=== PATIENT | male | born 1950 | race Hispanic/Latino ===

== ENCOUNTER 2018-03-27 05:30 | Day surgery (SDC) | payer MEDICARE, OTHER ==
[~2018-03-27] VITALS: Ht 162.6 cm; Wt 83.0 kg
[2018-03-27] VITALS (13 sets, daily range): BP systolic 94–200; BP diastolic 45–100
[~2018-03-27 05:30] MED LIST: AMIO200T5 PO; CARV3.12 PO; CYCL30DR OU; FOLI1TAB85 PO; FURO80TA3 PO; LEVO75 PO; SACU1TAB PO
[2018-03-27] MEDS ORDERED: SODIUM CHLORIDE 0.9% 1000ML 1,000 ML IV ONE (05:40)
[2018-03-27] MEDS ORDERED: PROPOFOL 10 MG/ML 20ML VIAL IV ONE (06:47)
[2018-03-27] MEDS ORDERED: EPHEDRINE SULFATE 50 MG/ML AMPULE ONE (07:03)
--- NOTE | 2018-03-27 08:20 | NUR ---
DC PT DC HOME, ACCOMPANIED BY SPOUSE, PT AWAKE AND ALERT, NO DISTRESS NOTED. PT DENIED ANY PAIN OR DISCOMFORTS. PT STATES HAS HAD PRODUCTIVE COUGH EVEN PRE PROCEDURE. NO PIV NOTED.
== END 2018-03-27 08:20 | disposition home or self-care (01) ==
LOC: ENDO 05:30 → DAH 05:30 → ENDO 08:20
PROVIDERS: ATTEND Internal Medicine Gastroenterology
DX: D12.0 Benign neoplasm of cecum (principal); D12.2 Benign neoplasm of ascending colon; Z86.010 Personal history of colon polyps; K29.50 Unspecified chronic gastritis without bleeding; K31.89 Other diseases of stomach and duodenum; K44.9 Diaphragmatic hernia without obstruction or gangrene; K57.30 Diverticulosis of large intestine without perforation or abscess without bleeding; K31.9 Disease of stomach and duodenum, unspecified; Z68.30 Body mass index [BMI] 30.0-30.9, adult; K64.1 Second degree hemorrhoids; I13.0 Hypertensive heart and chronic kidney disease with heart failure and stage 1 through stage 4 chronic kidney disease, or unspecified chronic kidney disease; N18.9 Chronic kidney disease, unspecified; Z88.8 Allergy status to other drugs, medicaments and biological substances; I50.20 Unspecified systolic (congestive) heart failure; Z82.49 Family history of ischemic heart disease and other diseases of the circulatory system; Z83.3 Family history of diabetes mellitus; Z79.899 Other long term (current) drug therapy; Z85.528 Personal history of other malignant neoplasm of kidney; D64.9 Anemia, unspecified; J45.909 Unspecified asthma, uncomplicated; D68.9 Coagulation defect, unspecified
CPT/HCPCS: 43239; 45380; 45381; 45385; 88305; 93005; A4606; J2704; J3490; J7030; 45384

== ENCOUNTER → 2018-08-09 | Outpatient (CLI) | payer OTHER ==
[~2018-08-09] VITALS: Ht 165.1 cm; Wt 76.7 kg
[~2018-08-09] MED LIST changes: +ALBUMIN (HUMAN) 25% 200 ML IV SCH; +LACT10SO8 PO; -SACU1TAB PO
--- NOTE | 2018-08-09 08:55 | NUR ---
US GUIDED PARACENTESIS PROCEDURE PERFORMED BY DR. MINAYA. PUNCTURE SITE TO THE LEFT LOWER QUADRANT. PROCEDURE TOLERATED WELL. 9.0 LITERS OF CLOUDY SANDHYA COLORED ASCITES FLUID REMOVED. END OF PROCEDURE AT 0935. CATHETER REMOVED AND DRESSING APPLIED. NO BLEEDING NOTED. PATIENT TOLERATED WELL. DISCHARGE INSTRUCTIONS GIVEN TO PATIENT. PT VERBALIZED UNDERSTANDING. PT STABLE, AAO X3. NO C/O PAIN.
[2018-08-09 10:12] LABS: APPEARANCE BODY FLUID CLEAR (CLEAR); COLOR,BODY FLUID YELLOW (LT YELLOW); SPECIMENTYPE,BODY FLUID ASCITES; TOTAL VOLUME,BODY FLUID 9000 mL
[2018-08-09 10:16] LABS: BODY FLUID RBC 142 /cu. mm.; BODY FLUID WBC 170 /cu. mm.
[2018-08-09 10:25] LABS: BF LYMPHOCYTE 32 %; BF MESOTHELIAL 54 %; BF MONOCYTE 12 %
== END | disposition home or self-care (01) ==
LOC: RAH 08:03
PROVIDERS: ATTEND Internal Medicine Gastroenterology
DX: K74.60 Unspecified cirrhosis of liver (principal); J45.909 Unspecified asthma, uncomplicated; I11.0 Hypertensive heart disease with heart failure; I50.20 Unspecified systolic (congestive) heart failure; Z90.5 Acquired absence of kidney; Z90.49 Acquired absence of other specified parts of digestive tract; Z79.899 Other long term (current) drug therapy; Z85.528 Personal history of other malignant neoplasm of kidney; Z98.890 Other specified postprocedural states; Z82.49 Family history of ischemic heart disease and other diseases of the circulatory system; Z83.3 Family history of diabetes mellitus; Z80.0 Family history of malignant neoplasm of digestive organs; Z88.8 Allergy status to other drugs, medicaments and biological substances
CPT/HCPCS: 49083; 87071; 87205; 89051; 96365; A4215; P9046

== ENCOUNTER 2018-08-15 09:53 | Day surgery (SDC) | payer OTHER ==
[2018-08-08 13:53] VITALS: BP 117/60
[2018-08-08 14:04] LABS: BASOPHILS % (AUTO) 0.5 % (0.0-5.0); EOSINOPHILS % (AUTO) 0.3 % (0.0-8.0); HEMATOCRIT 34.7 % (42-54); LYMPHOCYTES % (AUTO) 18.9 % (21.0-51.0); MEAN CORPUSCULAR HEMOGLOBIN 32.2 pg (27.0-33.0); MEAN CORPUSCULAR HGB CONC 33.5 g/dL (32.0-36.0); MEAN CORPUSCULAR VOLUME 96.2 fL (79-99); MONOCYTES % (AUTO) 6.6 % (3.0-13.0); NEUTROPHILS % (AUTO) 73.7 % (40.0-77.0); PLATELET COUNT (AUTO) 178 K/uL (130-400); RED BLOOD CELL COUNT(AUTO) 3.61 MIL/uL (4.50-6.20); RED CELL DISTRIBUTION WIDTH 17.2 % (11.0-15.5); WHITE BLOOD COUNT (AUTO) 9.5 K/uL (4.8-10.8)
[2018-08-08 14:21] LABS: ALBUMIN 2.7 g/dL (3.5-5.0); BILIRUBIN,TOTAL 1.8 mg/dL (0.2-1.0); CREATININE 2.5 mg/dL (0.5-1.5); POTASSIUM 4.7 mmol/L (3.5-5.1); TOTAL PROTEIN, SERUM 7.5 g/dL (6.0-8.3)
[2018-08-08 14:39] LABS: INR 1.07 (0.85-1.15); PARTIAL THROMBOPLASTIN TIME 35.3 SEC (26.3-35.5); PROTHROMBIN TIME 11.2 SEC (9.6-11.6)
--- NOTE | 2018-08-14 09:30 | NUR ---
CALLED BENJAMIN SYLVESTER NP OF DR. URBANO NO INFORM ABNORMAL LABS, PER BENJAMIN SYLVESTER NP TO FAX RESULTS TO OFFICE AND SHE WILL REVIEW AND CALL BACK
--- NOTE | 2018-08-14 16:00 | NUR ---
PER BENJAMIN SYLVESTER NP LABS SEEN OK TO PROCEED.
[2018-08-15] VITALS (20 sets, daily range): BP systolic 113–128; BP diastolic 44–68
[~2018-08-15] VITALS: Ht 167.6 cm; Wt 70.9 kg
[~2018-08-15 09:53] MED LIST changes: -ALBUMIN (HUMAN) 25% 200 ML IV SCH; +SODIUM CHLORIDE 0.9% 1000ML 1,000 ML IV SCH
[2018-08-15] MEDS ORDERED: CARV3.12 PO (11:15)
--- NOTE | 2018-08-15 12:20 | NUR ---
LATE ENTRY FOR 1220 08/15/18, GAVE REPORT TO NICKIE CRENSHAW RN , NICKIE CRENSHAW TOOK OVER CARE. I RETURNED AT 1400 AND TOOK OVER PATIENT CARE AT THIS TIME.
[2018-08-15] MEDS ORDERED: FENTANYL CITRATE PF 50 MCG/1 ML 2ML VIAL ONE (14:02)
[2018-08-15] MEDS ORDERED: MIDAZOLAM HCL 1 MG/ML 2ML VIAL ONE ×2 (14:04→14:05)
[2018-08-15] MEDS ORDERED: LIDOCAINE HCL 2% VISCOUS 15 ML UDCUP ONE (14:05)
--- NOTE | 2018-08-15 14:46 | NUR ---
ADM 50MCG OF FENTANYL VERBAL ORDER PER DOCTOR SUNDEEP (VERBALLY READ BACK ) AT 1426, ADM 1MG OF VERSED IV PUSH SLOWLY (VERBALLY READ BACK ) AT 1428 , ADM 1 MG OF VERSED IV PUSH SLOWLY (VERBALLY READ BACK) AT 1452, ADM 50MCG OF FENTANYL (VERBALLY READ BACK ) AT 1455. PT TOLERATED PROCEDURE WELL.
== END 2018-08-15 16:21 | disposition home or self-care (01) ==
LOC: DAH 09:53
PROVIDERS: ATTEND Internal Medicine Cardiovascular Disease
DX: I34.0 Nonrheumatic mitral (valve) insufficiency (principal); I36.1 Nonrheumatic tricuspid (valve) insufficiency; I25.10 Atherosclerotic heart disease of native coronary artery without angina pectoris; R18.8 Other ascites; I48.0 Paroxysmal atrial fibrillation; E03.9 Hypothyroidism, unspecified; I13.0 Hypertensive heart and chronic kidney disease with heart failure and stage 1 through stage 4 chronic kidney disease, or unspecified chronic kidney disease; N18.3 Chronic kidney disease, stage 3 (moderate); I50.22 Chronic systolic (congestive) heart failure; Z88.8 Allergy status to other drugs, medicaments and biological substances; Z79.899 Other long term (current) drug therapy; Z98.890 Other specified postprocedural states; Z95.2 Presence of prosthetic heart valve; Z90.49 Acquired absence of other specified parts of digestive tract; Z85.72 Personal history of non-Hodgkin lymphomas; Z82.49 Family history of ischemic heart disease and other diseases of the circulatory system
CPT/HCPCS: 36415; 80053; 85025; 85610; 85730; 93312; 93325; A4606; J2250; J3010; 93313; 99152; 99153

== ENCOUNTER → 2018-09-19 | Outpatient (CLI) | payer OTHER ==
[~2018-09-19] MED LIST changes: +ALBUMIN (HUMAN) 25% 200 ML IV SCH; -SODIUM CHLORIDE 0.9% 1000ML 1,000 ML IV SCH
[2018-09-19 08:46] LABS: BASOPHILS % (AUTO) 0.6 % (0.0-5.0); EOSINOPHILS % (AUTO) 0.6 % (0.0-8.0); HEMATOCRIT 29.4 % (42-54); LYMPHOCYTES % (AUTO) 20.8 % (21.0-51.0); MEAN CORPUSCULAR HEMOGLOBIN 31.4 pg (27.0-33.0); MEAN CORPUSCULAR HGB CONC 32.6 g/dL (32.0-36.0); MEAN CORPUSCULAR VOLUME 96.5 fL (79-99); MONOCYTES % (AUTO) 7.2 % (3.0-13.0); NEUTROPHILS % (AUTO) 70.8 % (40.0-77.0); NUCLEATED RED BLOOD CELLS 0.1 % (0.0-0.19); PLATELET COUNT (AUTO) 155 K/uL (130-400); RED BLOOD CELL COUNT(AUTO) 3.05 MIL/uL (4.50-6.20); RED CELL DISTRIBUTION WIDTH 16.7 % (11.0-15.5); WHITE BLOOD COUNT (AUTO) 7.7 K/uL (4.8-10.8)
[2018-09-19 09:04] LABS: INR 1.07 (0.85-1.15); PROTHROMBIN TIME 11.2 SEC (9.6-11.6)
[2018-09-19 09:13] LABS: ALBUMIN 2.7 g/dL (3.5-5.0); BILIRUBIN,TOTAL 0.9 mg/dL (0.2-1.0); CREATININE 2.4 mg/dL (0.5-1.5); POTASSIUM 4.4 mmol/L (3.5-5.1); TOTAL PROTEIN, SERUM 7.6 g/dL (6.0-8.3)
--- NOTE | 2018-09-19 10:00 | NUR ---
U/S GD PARACENTESIS PROCEDURE PERFORMED BY DR Gillian FONG. PUNCTURE SITE LLQ AND PATIENT TOLERATED PROCEDURE WELL. TOTAL REMOVED 4 LITERS OF CLOUDY YELLOW FLUID. ALBUMIN 25% 25 GRAMS IV GIVEN POST PROCEDURE. SPECIMEN SENT TO LAB. END OF PROCEDURE AT 0915. CATHETER REMOVED AND DRESSING APPLIED. NO BLEEDING NOTED. DISCHARGE INSTRUCTIONS GIVEN TO PATIENT AND VERBALIZED UNDERSTANDING. DISCHARGED VIA AMBULATION AT 1000. AAO X3 WITH NO C/O PAIN.
[2018-09-19 11:48] LABS: ALBUMIN,BODY FLUID 1.3 g/dL
[2018-09-19 13:13] LABS: BF LYMPHOCYTE 56 %; BF MESOTHELIAL 22 %; BF MONOCYTE 3 %
[2018-09-19 13:15] LABS: APPEARANCE BODY FLUID CLOUDY (CLEAR); COLOR,BODY FLUID DARK YELLOW (LT YELLOW); SPECIMENTYPE,BODY FLUID ASCITES; TOTAL VOLUME,BODY FLUID 4000 mL
[2018-09-19 13:16] LABS: BODY FLUID RBC 395 /cu. mm.; BODY FLUID WBC 98 /cu. mm.
== END ==
LOC: RAH 07:21
PROVIDERS: ATTEND Internal Medicine Gastroenterology
DX: R18.8 Other ascites (principal); K74.60 Unspecified cirrhosis of liver
CPT/HCPCS: 36415; 49083; 80053; 82042; 84157; 85025; 85610; 87071; 87205; 88108; 88305; 89051; A4215; P9046

== ENCOUNTER → 2018-09-26 | Outpatient (CLI) | payer OTHER ==
[~2018-09-26] MED LIST changes: -ALBUMIN (HUMAN) 25% 200 ML IV SCH
== END | disposition home or self-care (01) ==
LOC: RAH 07:49
PROVIDERS: ATTEND Internal Medicine Gastroenterology
DX: K80.20 Calculus of gallbladder without cholecystitis without obstruction (principal); R16.1 Splenomegaly, not elsewhere classified; J90 Pleural effusion, not elsewhere classified; K74.60 Unspecified cirrhosis of liver; R18.8 Other ascites
CPT/HCPCS: 76700; 93975

== ENCOUNTER → 2018-11-05 | Outpatient (CLI) | payer OTHER ==
[2018-11-05 08:51] LABS: BASOPHILS % (AUTO) 0.6 % (0.0-5.0); EOSINOPHILS % (AUTO) 0.4 % (0.0-8.0); HEMATOCRIT 30.2 % (42-54); LYMPHOCYTES % (AUTO) 18.1 % (21.0-51.0); MEAN CORPUSCULAR HEMOGLOBIN 32.1 pg (27.0-33.0); MEAN CORPUSCULAR HGB CONC 32.5 g/dL (32.0-36.0); MEAN CORPUSCULAR VOLUME 98.8 fL (79-99); MONOCYTES % (AUTO) 7.1 % (3.0-13.0); NEUTROPHILS % (AUTO) 73.8 % (40.0-77.0); NUCLEATED RED BLOOD CELLS 0.1 % (0.0-0.19); PLATELET COUNT (AUTO) 138 K/uL (130-400); RED BLOOD CELL COUNT(AUTO) 3.06 MIL/uL (4.50-6.20); RED CELL DISTRIBUTION WIDTH 16.5 % (11.0-15.5); WHITE BLOOD COUNT (AUTO) 6.7 K/uL (4.8-10.8)
[2018-11-05 09:11] LABS: CREATININE 2.4 mg/dL (0.5-1.5); POTASSIUM 3.8 mmol/L (3.5-5.1)
[2018-11-05 09:13] LABS: INR 1.11 (0.85-1.15); PARTIAL THROMBOPLASTIN TIME 28.9 SEC (26.3-35.5); PROTHROMBIN TIME 11.6 SEC (9.6-11.6)
--- NOTE | 2018-11-05 10:00 | NUR ---
U/S GD RT THORACENTESIS PROCEDURE PERFORMED BY DR Niles LANZA. PUNCTURE SITE RT POSTERIOR BACK AND PATIENT TOLERATED PROCEDURE WELL. TOTAL REMOVED 2 LITERS OF CLEAR YELLOW FLUID. END OF PROCEDURE AT 0930. CATHETER REMOVED AND DRESSING APPLIED. NO BLEEDING NOTED. POST CHEST X-RAY TAKEN AND READ BY DR Niles LANZA. NO PNEUMOTHORAX SEEN. DISCHARGE INSTRUCTIONS GIVEN TO PATIENT AND VERBALIZED UNDERSTANDING. DISCHARGED VIA AMBULATION AT 1000. AAO X3 WITH NO C/O PAIN. SPECIMEN SENT TO LAB.
[2018-11-05 13:52] LABS: APPEARANCE BODY FLUID CLEAR (CLEAR); COLOR,BODY FLUID YELLOW (LT YELLOW); SPECIMENTYPE,BODY FLUID PLEURAL
[2018-11-05 13:53] LABS: BODY FLUID RBC 24 /cu. mm.; BODY FLUID WBC 82 /cu. mm.; TOTAL VOLUME,BODY FLUID 2000 mL
[2018-11-05 14:02] LABS: BF LYMPHOCYTE 15 %; BF MESOTHELIAL 45 %; BF MONOCYTE 1 %
== END ==
LOC: RAH 08:00
PROVIDERS: ATTEND Nurse Practitioner Family
DX: J90 Pleural effusion, not elsewhere classified (principal); I12.9 Hypertensive chronic kidney disease with stage 1 through stage 4 chronic kidney disease, or unspecified chronic kidney disease; N18.4 Chronic kidney disease, stage 4 (severe); D63.1 Anemia in chronic kidney disease; E03.9 Hypothyroidism, unspecified; Z90.5 Acquired absence of kidney; Z90.49 Acquired absence of other specified parts of digestive tract; Z85.528 Personal history of other malignant neoplasm of kidney; Z88.0 Allergy status to penicillin; Z88.8 Allergy status to other drugs, medicaments and biological substances
CPT/HCPCS: 32555; 36415; 71045; 80048; 82945; 83615; 83986; 84157; 85025; 85610; 85730; 87071; 87205; 89051

== ENCOUNTER → 2018-11-15 | Outpatient (CLI) | payer OTHER ==
[~2018-11-15] MED LIST changes: +LACT10SO62 PO; -LACT10SO8 PO
[2018-11-15 09:23] LABS: BASOPHILS % (AUTO) 0.8 % (0.0-5.0); EOSINOPHILS % (AUTO) 0.6 % (0.0-8.0); HEMATOCRIT 29.3 % (42-54); LYMPHOCYTES % (AUTO) 18.9 % (21.0-51.0); MEAN CORPUSCULAR HEMOGLOBIN 32.2 pg (27.0-33.0); MEAN CORPUSCULAR HGB CONC 32.8 g/dL (32.0-36.0); MEAN CORPUSCULAR VOLUME 98.2 fL (79-99); MONOCYTES % (AUTO) 8.5 % (3.0-13.0); NEUTROPHILS % (AUTO) 71.2 % (40.0-77.0); PLATELET COUNT (AUTO) 138 K/uL (130-400); RED BLOOD CELL COUNT(AUTO) 2.98 MIL/uL (4.50-6.20); RED CELL DISTRIBUTION WIDTH 16.2 % (11.0-15.5); WHITE BLOOD COUNT (AUTO) 7.1 K/uL (4.8-10.8)
[2018-11-15 09:37] LABS: INR 1.09 (0.85-1.15); PROTHROMBIN TIME 11.4 SEC (9.6-11.6)
[2018-11-15 09:39] LABS: ALBUMIN 2.8 g/dL (3.5-5.0); BILIRUBIN,TOTAL 0.9 mg/dL (0.2-1.0); CREATININE 2.2 mg/dL (0.5-1.5); POTASSIUM 3.8 mmol/L (3.5-5.1); TOTAL PROTEIN, SERUM 7.5 g/dL (6.0-8.3)
--- NOTE | 2018-11-15 11:00 | NUR ---
U/S GD PARACENTESIS PROCEDURE PERFORMED BY DR ALMONTE. PUNCTURE SITE LEFT LOWER QUADRANT OF ABDOMEN AND PATIENT TOLERATED PROCEDURE WELL. TOTAL REMOVED 3.2 LITERS OF CLOUDY YELLOW FLUID. END OF PROCEDURE AT 1120. CATHETER REMOVED AND DRESSING APPLIED. PT DID NOT QUALIFY FOR [facility]. NO BLEEDING NOTED. DISCHARGE INSTRUCTIONS GIVEN TO PATIENT. PATIENT VERBALIZED UNDERSTANDING. PT STABLE, AAO X3, WITH NO C/O PAIN. SPECIMEN SENT TO LAB.
[2018-11-15 14:28] LABS: APPEARANCE BODY FLUID CLEAR (CLEAR); BODY FLUID WBC 71 /cu. mm.; COLOR,BODY FLUID YELLOW (LT YELLOW); SPECIMENTYPE,BODY FLUID ASCITES; TOTAL VOLUME,BODY FLUID 3200 mL
[2018-11-15 14:29] LABS: BODY FLUID RBC 92 /cu. mm.
[2018-11-15 14:53] LABS: BF LYMPHOCYTE 17 %; BF MESOTHELIAL 71 %
== END | disposition home or self-care (01) ==
LOC: RAH 08:55
PROVIDERS: ATTEND Internal Medicine Gastroenterology
DX: R18.8 Other ascites (principal); K74.60 Unspecified cirrhosis of liver
CPT/HCPCS: 36415; 49083; 80053; 85025; 85610; 87071; 87205; 88108; 88305; 89051; A4215

== ENCOUNTER → 2019-01-23 | Outpatient (CLI) | payer OTHER ==
[~2019-01-23] MED LIST changes: +ALBUMIN (HUMAN) 25% 200 ML IV SCH
[2019-01-23 09:53] LABS: BASOPHILS % (AUTO) 0.4 % (0.0-5.0); EOSINOPHILS % (AUTO) 0.4 % (0.0-8.0); MEAN CORPUSCULAR HEMOGLOBIN 29.8 pg (27.0-33.0); MEAN CORPUSCULAR HGB CONC 31.1 g/dL (32.0-36.0); MEAN CORPUSCULAR VOLUME 95.9 fL (79-99); MONOCYTES % (AUTO) 9.7 % (3.0-13.0); NEUTROPHILS % (AUTO) 73.4 % (40.0-77.0); PLATELET COUNT (AUTO) 104 K/uL (130-400); RED BLOOD CELL COUNT(AUTO) 2.92 MIL/uL (4.50-6.20); RED CELL DISTRIBUTION WIDTH 16.9 % (11.0-15.5); WHITE BLOOD COUNT (AUTO) 7.2 K/uL (4.8-10.8)
[2019-01-23 10:28] LABS: INR 1.19 (0.85-1.15); PROTHROMBIN TIME 12.4 SEC (9.6-11.6)
[2019-01-23 10:39] LABS: ALBUMIN 3.1 g/dL (3.5-5.0); CREATININE 3.6 mg/dL (0.5-1.5); POTASSIUM 4.6 mmol/L (3.5-5.1); TOTAL PROTEIN, SERUM 7.7 g/dL (6.0-8.3)
--- NOTE | 2019-01-23 11:10 | NUR ---
U/S GD PARACENTESIS PROCEDURE PERFORMED BY DR. MINAYA. PUNCTURE SITE RLQ. TOTAL REMOVED 3.3 LITERS OF ASCITES FLUID. END OF PROCEDURE AT 1058. SPECIMEN SENT TO LAB. PATIENT TOLERATED PROCEDURE WELL. DISCHARGE INSTRUCTIONS GIVEN TO PATIENT AND VERBALIZED UNDERSTANDING. DISCHARGED AT 1110 VIA WHEELCHAIR.
--- NOTE | 2019-01-23 11:11 | NUR ---
REPORTED ABORMAL BUN 77 AND CREAT 3.[address] Fly CRENSHAW. NO NEW ORDERS.
[2019-01-23 14:32] LABS: APPEARANCE BODY FLUID TURBID (CLEAR); COLOR,BODY FLUID YELLOW (LT YELLOW); SPECIMENTYPE,BODY FLUID ASCITES; TOTAL VOLUME,BODY FLUID 3300 mL
[2019-01-23 14:33] LABS: BODY FLUID RBC 260 /cu. mm.; BODY FLUID WBC 99 /cu. mm.
[2019-01-23 14:39] LABS: BF LYMPHOCYTE 15 %; BF MESOTHELIAL 9 %; BF MONOCYTE 14 %
== END ==
LOC: RAH 09:19
PROVIDERS: ATTEND Internal Medicine Gastroenterology
DX: R18.8 Other ascites (principal); K74.60 Unspecified cirrhosis of liver; I11.0 Hypertensive heart disease with heart failure; I50.20 Unspecified systolic (congestive) heart failure; C64.1 Malignant neoplasm of right kidney, except renal pelvis; Z79.899 Other long term (current) drug therapy; J45.909 Unspecified asthma, uncomplicated; Z88.8 Allergy status to other drugs, medicaments and biological substances; Z88.1 Allergy status to other antibiotic agents; Z98.890 Other specified postprocedural states; Z90.5 Acquired absence of kidney; Z82.49 Family history of ischemic heart disease and other diseases of the circulatory system; Z83.3 Family history of diabetes mellitus; Z82.3 Family history of stroke
CPT/HCPCS: 36415; 49083; 80053; 85025; 85610; 87071; 87205; 88108; 89051; A4215; P9046